=== PATIENT | male | born 1965 | race Caucasian/White ===

== ENCOUNTER → 2020-10-22 | Outpatient (CLI) | payer OTHER ==
[~2020-10-22] MED LIST: OMNIPAQUE 350 MG/ML, 100ML BOTTLE ONE
== END | disposition home or self-care (01) ==
LOC: CFH 10:53
PROVIDERS: ATTEND Physician Assistant Medical
DX: K76.0 Fatty (change of) liver, not elsewhere classified (principal); K40.90 Unilateral inguinal hernia, without obstruction or gangrene, not specified as recurrent; K57.30 Diverticulosis of large intestine without perforation or abscess without bleeding; R59.9 Enlarged lymph nodes, unspecified; E11.65 Type 2 diabetes mellitus with hyperglycemia; R81 Glycosuria; M51.36 Other intervertebral disc degeneration, lumbar region
CPT/HCPCS: 74177; Q9967